=== PATIENT | male | born 1980 | race Two or more races ===

== ENCOUNTER 2021-12-03 17:49 | Emergency (ER) | payer SELFPAY ==
[~2021-12-03] VITALS: Ht 175.3 cm; Wt 59.0 kg
[2021-12-03 17:59] VITALS: BP 131/78
[2021-12-03] MEDS ORDERED: DOXY150T5 MT ×2 (21:57→22:38)
[2021-12-03] MEDS ORDERED: TETANUS, DIPHTHERIA, PERTUSSIS VAC/PF 0.5ML (>10YR OLD) IM ONE (22:15)
== END 2021-12-03 22:21 | disposition home or self-care (01) ==
LOC: ER 17:49
DX: S60.552A Superficial foreign body of left hand, initial encounter (principal); X58.XXXA Exposure to other specified factors, initial encounter; Y93.89 Activity, other specified; Y92.89 Other specified places as the place of occurrence of the external cause; Y99.8 Other external cause status
CPT/HCPCS: 73130; 90471; 90715; 99283